=== PATIENT | female | born 1980 ===

== ENCOUNTER 2017-04-02 19:13 | Emergency (ER) | payer MEDICAID ==
[2017-04-02 19:30] VITALS: BP 135/82; PULSE 84; RESP 17; TEMP 98.7; O2SAT 99
--- NOTE | 2017-04-02 19:43 | ED PDOC ---
HPI: Headache Time Seen by Provider: 04/02/17 19:31 Chief Complaint (Nursing): Headache Chief Complaint (Provider): Headache History Per: Patient History/Exam Limitations: no limitations Onset/Duration Of Symptoms: Days (x2days) Current Symptoms Are (Timing): Still Present Pain Scale Rating Of: 8 Additional Complaint(s): Vianney garcia a 36 y/o female with a past medical history of asthma who presents to the ED with a chief complaint of a left sided headache x 2 days associated with nausea but no vomiting. Patient rates the pain an 8/10 and states she took Motrin at 19:00 yesterday which did not help the pain. Patient denies associated dizziness or vision changes, no fever or chills, no neck stiffness. Patient states this is not the worst headache of her life. PMD: Dr. Gabriella Pollack MD. Past Medical History Reviewed: Historical Data, Nursing Documentation, Vital Signs Vital Signs: Last Vital Signs Temp 98.7 F 04/02/17 19:24 Pulse 84 04/02/17 19:24 Resp 17 04/02/17 19:24 BP 135/82 04/02/17 19:24 Pulse Ox 99 04/02/17 19:24 - Medical History PMH: Asthma - Surgical History Surgical History: Cholecystectomy, Hernia Repair (Umbilical ), (2) - Family History Family History: States: No Known Family Hx - Living Arrangements Living Arrangements: With Family - Social History Current smoker - smoking cessation education provided: No Alcohol: Occasional Drugs: Denies - Home Medications Home Medications: Ambulatory Orders Medication Instructions Recorded Dicyclomine [Bentyl] 20 mg PO Q12 PRN #20 tab 09/30/15 Ondansetron ODT [Zofran ODT] 4 mg PO Q6H PRN #16 odt 09/30/15 Naproxen 500 mg PO BID #20 tab 07/01/16 Azithromycin [Zithromax] 250 mg PO DAILY #6 tab 10/26/16 Promethazine/Phenyleph/Codeine 5 ml PO Q8H PRN #100 ml 10/26/16 [Etnywsrairju-QY-Nbpnlen Syrup] Naproxen [Naprosyn] 500 mg PO BID #20 tab 04/02/17 traMADol [Ultram] 50 mg PO TID PRN #15 tab 04/02/17 - Allergies Allergies/Adverse Reactions: Allergies Allergy/AdvReac Type Severity Reaction Status Date / Time No Known Allergies Allergy Verified 09/29/15 21:04 Review of Systems ROS Statement: Except As Marked, All Systems Reviewed And Found Negative Constitutional: Negative for: Fever Eyes: Negative for: Vision Change Gastrointestinal: Positive for: Nausea. Negative for: Vomiting Neurological: Positive for: Headache (left-sided). Negative for: Weakness, Numbness, Incoordination, Change in Speech, Confusion, Seizures, Altered Mental Status, Dizziness Physical Exam - Reviewed Nursing Documentation Reviewed: Yes Vital Signs Reviewed: Yes - Physical Exam Appears: Positive for: Well, Non-toxic, No Acute Distress Head Exam: Positive for: ATRAUMATIC, NORMAL INSPECTION, NORMOCEPHALIC Skin: Positive for: Normal Color, Warm, Dry Eye Exam: Positive for: Normal appearance, EOMI, PERRL ENT: Positive for: Normal ENT Inspection Neck: Positive for: Painless ROM. Negative for: Pain On Movement Of Neck Cardiovascular/Chest: Positive for: Regular Rate, Rhythm Respiratory: Positive for: Normal Breath Sounds Extremity: Positive for: Normal ROM. Negative for: Pedal Edema Neurologic/Psych: Positive for: Alert, Oriented - Laboratory Results Urine POC: Negative - ECG O2 Sat by Pulse Oximetry: 99 (RA) Pulse Ox Interpretation: Normal - Other Rad CT head X-Ray: Read By Radiologist X-Ray Interpretation: no acute finding Medical Decision Making Medical Decision Makin: Initial Impression: 36 year old female with headache Initial Plan: * CT head * Urine test * Tylenol 975mg PO * Tramadol 50mg PO * Metoclopramide 10mg IM * Re-Eval CT head is negative. Headache pain improved after meds given. Prescriptions given for Naprosyn and Flexeril. Patient was advised to follow up with primary doctor in 1-2 days. Scribe Attestation: Documented by Wicho Kelley acting as a scribe for Aisha Benavides PA-C. Provider Scribe Attestation: All medical record entries made by the Scribe were at my direction and personally dictated by me. I have reviewed the chart and agree that the record accurately reflects my personal performance of the history, physical exam, medical decision making, and the department course for this patient. I have also personally directed, reviewed, and agree with the discharge instructions and disposition. Disposition - Clinical Impression Clinical Impression: Headache - Patient ED Disposition Is Patient to be Admitted: No Counseled Patient/Family Regarding: Studies Performed, Diagnosis, Need For Followup, Rx Given - Disposition Referrals: Gabriella Pollack MD [Family Provider] - Disposition: Routine/Home Disposition Time: 21:46 Condition: IMPROVED Additional Instructions: Take prescription meds as directed as needed for pain. Rest and drink plenty of fluids. Follow up with primary care doctor in 1-2 days. Prescriptions: Naproxen [Naprosyn] 500 mg PO BID #20 tab traMADol [Ultram] 50 mg PO TID PRN #15 tab PRN Reason: Pain, Moderate (4-7) Instructions: General Headache (ED)
--- NOTE | 2017-04-02 20:51 | CT ---
EXAM: CT Head Without Intravenous Contrast CLINICAL HISTORY: 36 years old, female; Pain; Headache; Additional info: Left sided headache for 2 days, nausea TECHNIQUE: Axial computed tomography images of the head/brain without intravenous contrast. This CT exam was performed using one or more of the following dose reduction techniques: automated exposure control, adjustment of the mA and/or kV according to patient size, and/or use of iterative reconstruction technique. COMPARISON: No relevant prior studies available. FINDINGS: Brain: No hemorrhage. No significant white matter disease. No edema. Ventricles: No hydrocephalus. Bones: Skull is intact. Sinuses: No acute sinusitis. Mastoid air cells: No mastoid effusion. IMPRESSION: No CT evidence of acute intracranial abnormality.
== END 2017-04-02 22:13 | disposition home or self-care (01) ==
LOC: H.ER 19:13
DX: R51 Headache (principal); R11.0 Nausea; J45.909 Unspecified asthma, uncomplicated

== ENCOUNTER 2017-07-17 14:25 | Emergency (ER) | payer MEDICAID ==
[2017-07-17 14:51] VITALS: BP 133/87; PULSE 86; RESP 18; TEMP 98.8; O2SAT 100
[2017-07-17] MEDS ORDERED: Naproxen 500 MG TAB PO STA (15:53)
--- NOTE | 2017-07-17 16:01 | ED PDOC ---
HPI: Headache Time Seen by Provider: 07/17/17 15:18 Chief Complaint (Nursing): Headache Chief Complaint (Provider): Headache History Per: Patient History/Exam Limitations: no limitations Onset/Duration Of Symptoms: Days (x2) Current Symptoms Are (Timing): Still Present Additional Complaint(s): Vianney is a 37 y/o female who presents to the ED complaining of a left-sided headache for 2 days. No fever, nausea, vomiting, neck stiffness, or photophobia. Took Advil with some relief of pain. Also reports feeling like her eyes are twitching. Has had similar symptoms in the past. PMD: [facility] Past Medical History Reviewed: Historical Data, Nursing Documentation, Vital Signs Vital Signs: Last Vital Signs Temp 98.8 F 07/17/17 14:48 Pulse 86 07/17/17 14:48 Resp 18 07/17/17 14:48 BP 133/87 07/17/17 14:48 Pulse Ox 100 07/17/17 14:48 - Medical History PMH: Asthma - Surgical History Surgical History: Cholecystectomy, Hernia Repair (Umbilical ), (2) - Family History Family History: States: Unknown Family Hx - Social History Alcohol: None Drugs: Denies - Home Medications Home Medications: Ambulatory Orders Medication Instructions Recorded Dicyclomine [Bentyl] 20 mg PO Q12 PRN #20 tab 09/30/15 Ondansetron ODT [Zofran ODT] 4 mg PO Q6H PRN #16 odt 09/30/15 Naproxen 500 mg PO BID #20 tab 07/01/16 Azithromycin [Zithromax] 250 mg PO DAILY #6 tab 10/26/16 Promethazine/Phenyleph/Codeine 5 ml PO Q8H PRN #100 ml 10/26/16 [Vmvnxcdpknsv-HP-Kbvuhnh Syrup] Naproxen [Naprosyn] 500 mg PO BID #20 tab 04/02/17 traMADol [Ultram] 50 mg PO TID PRN #15 tab 04/02/17 Naproxen [Naprosyn] 500 mg PO BID PRN #15 tablet 07/17/17 - Allergies Allergies/Adverse Reactions: Allergies Allergy/AdvReac Type Severity Reaction Status Date / Time No Known Allergies Allergy Verified 09/29/15 21:04 Review of Systems ROS Statement: Except As Marked, All Systems Reviewed And Found Negative Constitutional: Negative for: Fever Eyes: Positive for: Other (Eye twitching) Gastrointestinal: Negative for: Nausea, Vomiting Musculoskeletal: Negative for: Neck Pain Neurological: Positive for: Headache. Negative for: Other (Photophobia) Physical Exam - Reviewed Nursing Documentation Reviewed: Yes Vital Signs Reviewed: Yes - Physical Exam Appears: Positive for: Non-toxic, No Acute Distress Head Exam: Positive for: ATRAUMATIC, NORMAL INSPECTION, NORMOCEPHALIC Skin: Positive for: Normal Color, Warm, Dry. Negative for: Rash Eye Exam: Positive for: EOMI, Normal appearance, PERRL ENT: Positive for: Normal ENT Inspection Neck: Positive for: Normal, Painless ROM, Supple Cardiovascular/Chest: Positive for: Regular Rate, Rhythm. Negative for: Murmur Respiratory: Positive for: Normal Breath Sounds. Negative for: Accessory Muscle Use, Respiratory Distress Gastrointestinal/Abdominal: Positive for: Normal Exam, Soft. Negative for: Tenderness Back: Positive for: Normal Inspection. Negative for: L CVA Tenderness, R CVA Tenderness, Vertebral Tenderness Extremity: Positive for: Normal ROM. Negative for: Pedal Edema, Deformity Neurologic/Psych: Positive for: Alert, director visual II-XII, Oriented. Negative for: Motor/Sensory Deficits, Aphasia, Facial Droop - ECG O2 Sat by Pulse Oximetry: 100 (RA) Pulse Ox Interpretation: Normal - Progress ED Course And Treament: Pt feels better, eating in room. Re-evaluation Time: 17:30 Condition: Improved Medical Decision Making Medical Decision Making: Records reviewed, patient was seen here on 04/02/[address] Head with the following results: 04/02/17 20:51 CT Head w/o contrast: FINDINGS: Brain: No hemorrhage. No significant white matter disease. No edema. Ventricles: No hydrocephalus. Bones: Skull is intact. Sinuses: No acute sinusitis. Mastoid air cells: No mastoid effusion. IMPRESSION: No CT evidence of acute intracranial abnormality. Time: 15:53 Initial Plan: --Patient given Naproxen and Reglan PO --ED Urine test --Pending reevaluation Scribe Attestation: Documented by Laney Blue, acting as a scribe for Mellisa Feldman MD Provider Scribe Attestation: All medical record entries made by the Scribe were at my direction and personally dictated by me. I have reviewed the chart and agree that the record accurately reflects my personal performance of the history, physical exam, medical decision making, and the department course for this patient. I have also personally directed, reviewed, and agree with the discharge instructions and disposition. Disposition - Clinical Impression Clinical Impression: Acute headache - Disposition Disposition: Routine/Home Disposition Time: 17:30 Condition: STABLE Additional Instructions: FOLLOW-UP WITH YOUR PMD SCHEDULED. Prescriptions: Naproxen [Naprosyn] 500 mg PO BID PRN #15 tablet PRN Reason: Pain, Moderate (4-7) Instructions: Acute Headache (ED) Forms: [employer] (Danish)
[2017-07-17] MEDS ORDERED: Naproxen 500 MG TAB PO ONE (16:25)
== END 2017-07-17 18:03 | disposition home or self-care (01) ==
LOC: H.ER 14:25
DX: R51 Headache (principal)

== ENCOUNTER 2017-10-01 00:01 | Emergency (ER) | payer MEDICAID ==
[2017-10-01 00:54] VITALS: BP 147/89; TEMP 98; O2SAT 100
[2017-10-01] MEDS ORDERED: Albuterol-Ipratrop 3 mg / 0.5 (3 ml) UD INH STA (01:09)
[2017-10-01] MEDS ORDERED: Albuterol 0.083% Inhal Sol (2.5 mg/3 mL) UD ONE (01:18)
--- NOTE | 2017-10-01 01:33 | ED PDOC ---
HPI: SOB/CHF/COPD Time Seen by Provider: 10/01/17 00:44 Chief Complaint (Nursing): Respiratory Distress Chief Complaint (Provider): shortness of breath, cough, and chest tightness History Per: Patient History/Exam Limitations: no limitations Onset/Duration Of Symptoms: Days (x1) Current Symptoms Are (Timing): Still Present Additional Complaint(s): 37 year old female with a past medical history of asthma, presenting with chest tightness, shortness of breath, and cough for 1 day. Reports she used her home nebulizer twice with no relief. Cough is described as dry. No associated fever. She reports ill contact in a nephew and niece with URI symptoms. Patient also complains of nasal congestion. PMD: Dr. Malena Guzman Past Medical History Reviewed: Historical Data, Nursing Documentation, Vital Signs Vital Signs: Last Vital Signs Temp 98.0 F 10/01/17 00:49 Pulse 70 10/01/17 06:10 Resp 22 10/01/17 03:46 BP 147/89 10/01/17 00:49 Pulse Ox 100 10/01/17 06:10 - Medical History PMH: Asthma - Surgical History Surgical History: Cholecystectomy, Hernia Repair (Umbilical ), (2) - Family History Family History: States: Unknown Family Hx - Social History Current smoker - smoking cessation education provided: No Alcohol: None Drugs: Denies - Home Medications Home Medications: Ambulatory Orders Medication Instructions Recorded Dicyclomine [Bentyl] 20 mg PO Q12 PRN #20 tab 09/30/15 Ondansetron ODT [Zofran ODT] 4 mg PO Q6H PRN #16 odt 09/30/15 Naproxen 500 mg PO BID #20 tab 07/01/16 Azithromycin [Zithromax] 250 mg PO DAILY #6 tab 10/26/16 Promethazine/Phenyleph/Codeine 5 ml PO Q8H PRN #100 ml 10/26/16 [Mssogcyofwak-TR-Jvbedfv Syrup] Naproxen [Naprosyn] 500 mg PO BID #20 tab 04/02/17 traMADol [Ultram] 50 mg PO TID PRN #15 tab 04/02/17 Naproxen [Naprosyn] 500 mg PO BID PRN #15 tablet 07/17/17 Benzonatate [Tessalon Perle] 100 mg PO TID PRN #15 capsule 10/01/17 Methylprednisolone [Medrol Dosepak] 4 mg PO ASDIR #1 pkg 10/01/17 - Allergies Allergies/Adverse Reactions: Allergies Allergy/AdvReac Type Severity Reaction Status Date / Time No Known Allergies Allergy Verified 10/01/17 00:43 Review of Systems ROS Statement: Except As Marked, All Systems Reviewed And Found Negative Constitutional: Negative for: Fever ENT: Positive for: Nose Congestion Cardiovascular: Positive for: Other (Chest tightness) Respiratory: Positive for: Cough, Shortness of Breath Physical Exam - Reviewed Nursing Documentation Reviewed: Yes Vital Signs Reviewed: Yes - Physical Exam Appears: Positive for: Non-toxic, No Acute Distress Head Exam: Positive for: ATRAUMATIC, NORMOCEPHALIC Skin: Positive for: Normal Color, Warm, Dry Eye Exam: Positive for: EOMI, Normal appearance, PERRL Neck: Positive for: Normal, Painless ROM, Supple Cardiovascular/Chest: Positive for: Regular Rate, Rhythm. Negative for: Murmur Respiratory: Positive for: Wheezing (bilaterally), Other (Decreased air entry) Gastrointestinal/Abdominal: Positive for: Normal Exam, Soft. Negative for: Tenderness Back: Positive for: Normal Inspection. Negative for: L CVA Tenderness, R CVA Tenderness, Vertebral Tenderness Extremity: Positive for: Normal ROM. Negative for: Pedal Edema, Deformity Neurologic/Psych: Positive for: Alert, Oriented. Negative for: Motor/Sensory Deficits - Laboratory Results Result Diagrams: 10/01/17 01:44 10/01/17 01:44 - ECG ECG: Positive for: Interpreted By Me, Viewed By Me ECG Rhythm: Positive for: Sinus Rhythm. Negative for: ST/T Changes Rate: 70 O2 Sat by Pulse Oximetry: 100 (RA) Pulse Ox Interpretation: Normal - Other Rad chest x-ray X-Ray: Interpreted by Me, Viewed By Me X-Ray Interpretation: No acute disease Medical Decision Making Medical Decision Making: Time: 1:06 Initial Impression: 37 y/o female with cough and wheezing in setting of known asthma Initial Plan: --EKG --BMP --Urine --CBC w/ differential --Chest x-ray --Influenza A B --Duoneb 3 ml INH x3 --Solu-medrol 125 mg IV --Peak Flow pre/post treatment Time: 2:55 Labs reviewed and revealed no clinically significant abnormalities. Time: 3:48 Patient complains of persistent shortness of breath. Will order CT for further evaluation Time: 5:01 CT Angio Chest: FINDINGS: Pulmonary arteries: No central pulmonary embolism. Aorta: No thoracic aortic aneurysm. Lungs: No mass. No consolidation. Pleural spaces: No significant effusion. No pneumothorax. Heart: No cardiomegaly. No significant pericardial effusion. No evidence of right heart dysfunction. Bones: No acute fracture. Lymph nodes: No pathologically enlarged lymph nodes. IMPRESSION: No central pulmonary embolism. The lungs are clear. Clinical Impression: Bronchitis Patient is medically stable for discharge home. Provided with prescriptions for Tessalon Perles and Methylprednisolone. Counseling was provided and all questions were answered regarding diagnosis and need for follow up with PMD. There is agreement to discharge plan. Return if symptoms persist or worsen. Scribe Attestation: Documented by Laney Blue, acting as a scribe for Amador Varela MD Provider Scribe Attestation: All medical record entries made by the Scribe were at my direction and personally dictated by me. I have reviewed the chart and agree that the record accurately reflects my personal performance of the history, physical exam, medical decision making, and the department course for this patient. I have also personally directed, reviewed, and agree with the discharge instructions and disposition. Disposition - Clinical Impression Clinical Impression: Bronchitis - Patient ED Disposition Is Patient to be Admitted: No Counseled Patient/Family Regarding: Studies Performed, Diagnosis, Need For Followup - Disposition Referrals: Gabriella Pollack MD [Primary Care Provider] - Disposition: Routine/Home Disposition Time: 05:15 Condition: STABLE Prescriptions: Benzonatate [Tessalon Perle] 100 mg PO TID PRN #15 capsule PRN Reason: Cough Methylprednisolone [Medrol Dosepak] 4 mg PO ASDIR #1 pkg Forms: [employer] (Italian)
[2017-10-01 01:48] LABS: BASO # 0.1 K/uL (0.0-0.2); BASO % 0.7 % (0.0-2.0); EOS # 0.2 K/uL (0.0-0.7); EOS % 1.7 % (0.0-4.0); HEMATOCRIT 44.1 % (34.0-47.0); LYMPH # 3.1 K/uL (1.0-4.3); LYMPH % 28.9 % (20.0-40.0); MEAN CELL VOLUME 95.4 fl (81.0-99.0); MEAN CORPUSCULAR HEMOGLOBIN 31.3 pg (27.0-31.0); MEAN CORPUSCULAR HGB CONC 32.8 g/dL (33.0-37.0); MEAN PLATELET VOLUME 8.8 fl (7.2-11.7); NEUT # 6.5 K/uL (1.8-7.0); NEUT % 59.7 % (50.0-75.0); NRBC % 0.1 % (0.0-0.0); RED CELL DISTRIBUTION WIDTH 12.7 % (11.5-14.5); WHITE BLOOD COUNT 10.8 K/uL (4.8-10.8)
[2017-10-01 01:58] LABS: CALCIUM 9.1 mg/dL (8.4-10.2); CARBON DIOXIDE 24 mmol/L (22-30); CHLORIDE 107 mmol/L (98-107); GFR AFRICAN-AMERICAN > 60; GLUCOSE,RANDOM 111 mg/dL (65-105); SODIUM 142 mmol/l (132-148)
[2017-10-01 02:16] LABS: BLOOD UREA NITROGEN 10 mg/dl (7-17); POTASSIUM 3.7 MMOL/L (3.6-5.0)
[2017-10-01 02:21] VITALS: PULSE 70
[2017-10-01] MEDS ORDERED: Albuterol-Ipratrop 3 mg / 0.5 (3 ml) UD ONE (02:40)
[2017-10-01] MEDS ORDERED: Magnesium Sulfate 2 GM in Sodium Chloride 0.9% 100 ML IV STA (02:41)
[2017-10-01 03:47] VITALS: RESP 22
[2017-10-01] MEDS ORDERED: Sodium Chloride 0.9% 50 ML IV ONE (04:32)
[2017-10-01] MEDS ORDERED: Iodixanol 320 MG/ML 100 ML BOTTLE IV ONE (04:32)
--- NOTE | 2017-10-01 05:02 | CT ---
EXAM: CT Angiography Chest With Intravenous Contrast CLINICAL HISTORY: 37 years old, female; Pain; Chest pain; Prior surgery; Surgery date: 6+ months; Surgery type: Gall bladder removed; Additional info: Chest pain R/O pe TECHNIQUE: Axial computed tomographic angiography images of the chest with intravenous contrast using pulmonary embolism protocol. All CT scans at this facility use one or more dose reduction techniques, viz.: automated exposure control; ma/kV adjustment per patient size (including targeted exams where dose is matched to indication; i.e. head); or iterative reconstruction technique. MIP reconstructed images were created and reviewed. Coronal and sagittal reformatted images were created and reviewed. CONTRAST: 95 mL of [id number] administered intravenously. COMPARISON: No relevant prior studies available. Examination is limited by poor bolus timing. FINDINGS: Pulmonary arteries: No central pulmonary embolism. Aorta: No thoracic aortic aneurysm. Lungs: No mass. No consolidation. Pleural spaces: No significant effusion. No pneumothorax. Heart: No cardiomegaly. No significant pericardial effusion. No evidence of right heart dysfunction. Bones: No acute fracture. Lymph nodes: No pathologically enlarged lymph nodes. IMPRESSION: No central pulmonary embolism. The lungs are clear.
--- NOTE | 2017-10-01 09:52 | RAD ---
HISTORY: SOB COMPARISON: No prior. TECHNIQUE: Chest PA and lateral FINDINGS: LUNGS: No active pulmonary disease. PLEURA: No significant pleural effusion identified. No pneumothorax apparent. CARDIOVASCULAR: Normal. OSSEOUS STRUCTURES: No significant abnormalities. VISUALIZED UPPER ABDOMEN: Normal. OTHER FINDINGS: None. IMPRESSION: No active disease.
--- NOTE | 2017-10-01 12:14 | CARD ---
APPROVED REPORT EKG Measurement Heart [id number] <Conclusion> Normal sinus rhythm Normal ECG
== END 2017-10-01 05:45 | disposition home or self-care (01) ==
LOC: H.ER 00:01
DX: J40 Bronchitis, not specified as acute or chronic (principal)
CPT/HCPCS: 71020; 71275; 80048; 81025; 85025; 87804; 93005; 94640; 96374; 99283; J2930; J3475; Q9967

== ENCOUNTER 2017-10-01 18:53 | Emergency (ER) | payer MEDICAID ==
[2017-10-01 19:10] VITALS: BP 147/98; RESP 20; TEMP 98
--- NOTE | 2017-10-01 19:24 | ED PDOC ---
HPI: SOB/CHF/COPD Time Seen by Provider: 10/01/17 18:58 Chief Complaint (Nursing): Shortness Of Breath Chief Complaint (Provider): SOB History Per: Patient Additional Complaint(s): 37 year old female with a past medical history of asthma, presenting with chest tightness, shortness of breath, and cough for 2 days now. Pt tearful and anxious appearing during interview. Reports she used her home nebulizer twice with no relief. Cough is described as dry. No associated fever. She reports ill contact in a nephew and niece with URI symptoms. Patient also complains of nasal congestion. Pt seen and evaluated here in the ED yesterday for the same complaints. Pt afebrile yesterday WBC WNL CXR:IMPRESSION: No active disease. CT: IMPRESSION: No central pulmonary embolism. The lungs are clear. PMD: Dr. Malena Guzman Past Medical History Reviewed: Nursing Documentation, Vital Signs Vital Signs: Last Vital Signs Temp 98.0 F 10/01/17 19:07 Pulse 113 H 10/01/17 19:07 Resp 20 10/01/17 19:07 BP 147/98 H 10/01/17 19:07 Pulse Ox 99 10/01/17 19:28 - Medical History PMH: Asthma Denies: Chronic Kidney Disease - Surgical History Surgical History: Cholecystectomy, Hernia Repair (Umbilical ), (2) - Family History Family History: States: Unknown Family Hx - Living Arrangements Living Arrangements: With Family - Social History Current smoker - smoking cessation education provided: No Alcohol: None Drugs: Denies - Home Medications Home Medications: Ambulatory Orders Medication Instructions Recorded Dicyclomine [Bentyl] 20 mg PO Q12 PRN #20 tab 09/30/15 Ondansetron ODT [Zofran ODT] 4 mg PO Q6H PRN #16 odt 09/30/15 Naproxen 500 mg PO BID #20 tab 07/01/16 Azithromycin [Zithromax] 250 mg PO DAILY #6 tab 10/26/16 Promethazine/Phenyleph/Codeine 5 ml PO Q8H PRN #100 ml 10/26/16 [Qgebwapivoeg-CO-Zkiofat Syrup] Naproxen [Naprosyn] 500 mg PO BID #20 tab 04/02/17 traMADol [Ultram] 50 mg PO TID PRN #15 tab 04/02/17 Naproxen [Naprosyn] 500 mg PO BID PRN #15 tablet 07/17/17 Benzonatate [Tessalon Perle] 100 mg PO TID PRN #15 capsule 10/01/17 Methylprednisolone [Medrol Dosepak] 4 mg PO ASDIR #1 pkg 10/01/17 - Allergies Allergies/Adverse Reactions: Allergies Allergy/AdvReac Type Severity Reaction Status Date / Time No Known Allergies Allergy Verified 10/01/17 00:43 Curb-65 Severity Score - CURB-65 Severity Score Confusion: No Bun >19mg/dl (>7mmol/L): No Respiratory Rate greater than/equal to 30: No Systolic BP <90 or Diastolic BP less than/equal 60mmHg: No Age >64: No Curb-65 Score: 0 Percentage 30-day mortality: 0.6% Wells Criteria for PE - Wells Criteria for Pulmonary Embolism Clinical Signs and Symptoms of DVT: No P.E is #1 Diagnosis, or Equally Likely: No Heart Rate >100: No Immobilization at least 3 days;Surgery previous 4 weeks: No Previous, objectively diagnosed PE or DVT: No Hemoptysis: No Malignancy w/treatment within 6 months, or palliative: No Total Score: 0 Review of Systems ROS Statement: Except As Marked, All Systems Reviewed And Found Negative Respiratory: Positive for: Cough, SOB with Exertion Physical Exam - Reviewed Nursing Documentation Reviewed: Yes Vital Signs Reviewed: Yes - Physical Exam Appears: Positive for: Well, Non-toxic, No Acute Distress Head Exam: Positive for: ATRAUMATIC, NORMAL INSPECTION, NORMOCEPHALIC Skin: Positive for: Normal Color, Warm, DRY Eye Exam: Positive for: EOMI, Normal appearance, PERRL ENT: Positive for: Normal ENT Inspection Neck: Positive for: Normal, Painless ROM Cardiovascular/Chest: Positive for: Regular Rate, Rhythm Respiratory: Positive for: CNT, Normal Breath Sounds Gastrointestinal/Abdominal: Positive for: Normal Exam, Bowel Sounds, Soft Back: Positive for: Normal Inspection Extremity: Positive for: Normal ROM Neurologic/Psych: Positive for: Alert, Oriented - ECG O2 Sat by Pulse Oximetry: 99 Medical Decision Making Medical Decision Making: Pt afebrile yesterday WBC WNL CXR:IMPRESSION: No active disease. CT: IMPRESSION: No central pulmonary embolism. The lungs are clear. IV access established and diagnostics ordered. Treatment initiated with Duo neb , Solumedrol and Xanax Case endorsed to YVONNE Cevallos at 1999 pending diagnostic review and re-eval Disposition - Clinical Impression Clinical Impression: Anxiety, Bronchitis - Patient ED Disposition Is Patient to be Admitted: Transfer of Care - Disposition Disposition: Transfer of Care Disposition Time: 19:44 Condition: STABLE Forms: [employer] (Bahraini)
[2017-10-01] MEDS ORDERED: Albuterol-Ipratrop 3 mg / 0.5 (3 ml) UD INH STA (19:26)
[2017-10-01] MEDS ORDERED: Albuterol-Ipratrop 3 mg / 0.5 (3 ml) UD ONE (19:42)
[2017-10-01 20:13] LABS: BASO % 0.2 % (0.0-2.0); HEMATOCRIT 45.2 % (34.0-47.0); LYMPH # 1.7 K/uL (1.0-4.3); LYMPH % 11.2 % (20.0-40.0); MEAN CELL VOLUME 94.5 fl (81.0-99.0); MEAN CORPUSCULAR HEMOGLOBIN 31.7 pg (27.0-31.0); MEAN CORPUSCULAR HGB CONC 33.6 g/dL (33.0-37.0); MEAN PLATELET VOLUME 9.1 fl (7.2-11.7); MONO # 1.3 K/uL (0.0-0.8); MONO % 8.1 % (0.0-10.0); NEUT # 12.6 K/uL (1.8-7.0); NEUT % 80.5 % (50.0-75.0); RED CELL DISTRIBUTION WIDTH 12.8 % (11.5-14.5); WHITE BLOOD COUNT 15.6 K/uL (4.8-10.8)
[2017-10-01 20:36] LABS: ALB/GLOB RATIO 1.2 (1.0-2.1); ALKALINE PHOSPHATASE 84 U/L (38-126); ALT/SGPT 39 U/L (9-52); AST/SGOT 22 U/L (14-36); BILIRUBIN,TOTAL 0.9 mg/dl (0.2-1.3); BLOOD UREA NITROGEN 9 mg/dl (7-17); CALCIUM 9.5 mg/dL (8.4-10.2); CARBON DIOXIDE 19 mmol/L (22-30); CHLORIDE 112 mmol/L (98-107); GFR AFRICAN-AMERICAN > 60; GLUCOSE,RANDOM 123 mg/dL (65-105); POTASSIUM 3.5 MMOL/L (3.6-5.0); SODIUM 144 mmol/l (132-148); TOTAL PROTEIN 8.3 G/DL (6.3-8.2)
[2017-10-01 20:51] LABS: THYROID STIMULATING HORMONE 0.64 mIU/ML (0.46-4.68)
[2017-10-01] MEDS ORDERED: Potassium Chloride 20 mEq ER Tab PO STA (21:40)
--- NOTE | 2017-10-01 22:24 | ED PDOC ---
- Laboratory Results Result Diagrams: 10/01/17 20:00 10/01/17 20:00 - ECG O2 Sat by Pulse Oximetry: 99 - Progress ED Course And Treament: Patient appears improved. Ambulates on 99% at RA. Advised f/u with pmd in 2 days. Disposition - Clinical Impression Clinical Impression: Anxiety, Bronchitis - POA Present On Arrival: None - Disposition Referrals: [facility] [place] [Outside] Disposition: Routine/Home Disposition Time: 22:23 Condition: STABLE Additional Instructions: PLEASE CONTINUE WITH YOUR MEDROL DOSE PACK Instructions: Acute Bronchitis (ED), Anxiety (ED) Forms: [facility] [employer] (Swedish), [facility] ED School/Work Excuse
[2017-10-01 22:51] VITALS: PULSE 100; O2SAT 100
--- NOTE | 2017-10-02 10:20 | CARD ---
APPROVED REPORT EKG Measurement Heart [id number] <Conclusion> Sinus tachycardia Otherwise normal ECG
== END 2017-10-01 22:51 | disposition home or self-care (01) ==
LOC: H.ER 18:53
DX: J40 Bronchitis, not specified as acute or chronic (principal); F41.9 Anxiety disorder, unspecified
CPT/HCPCS: 80053; 84443; 84484; 85025; 93005; 94640; 96374; 99283; J2930

== ENCOUNTER 2018-01-12 03:48 | Emergency (ER) | payer MEDICAID ==
[2018-01-12 04:09] VITALS: O2SAT 96
--- NOTE | 2018-01-12 04:30 | ED PDOC ---
HPI: Chest Pain Time Seen by Provider: 01/12/18 04:00 Chief Complaint (Nursing): Chest Pain Chief Complaint (Provider): chest pain History Per: Patient History/Exam Limitations: no limitations Onset/Duration Of Symptoms: Hrs (1) Current Symptoms Are (Timing): Still Present Quality: "Pain" Exacerbating Factors: Turning, Movement, Deep Breathing Additional History Per: Patient Additional Complaint(s): 37 y/o female presents for evaluation of mid sternal chest pain x 1 hour. Patient states she was sleeping on her right side, and when she went to turn to her left side she felt the pain. Pain worsened by movement, deep breaths. Denies fever, shortness of breath, nausea/vomiting, abdominal pain, leg pain/ swelling, recent travel. Past Medical History Reviewed: Historical Data, Nursing Documentation, Vital Signs Vital Signs: Last Vital Signs Temp 98.5 F 01/12/18 04:07 Pulse 94 H 01/12/18 04:07 Resp 17 01/12/18 04:07 BP 119/84 01/12/18 04:07 Pulse Ox 96 01/12/18 04:46 - Medical History PMH: Asthma Denies: Chronic Kidney Disease - Surgical History Surgical History: Cholecystectomy, Hernia Repair (Umbilical ), (2) - Family History Family History: States: Unknown Family Hx - Social History Current smoker - smoking cessation education provided: No - Home Medications Home Medications: Ambulatory Orders Medication Instructions Recorded Dicyclomine [Bentyl] 20 mg PO Q12 PRN #20 tab 09/30/15 Ondansetron ODT [Zofran ODT] 4 mg PO Q6H PRN #16 odt 09/30/15 Naproxen 500 mg PO BID #20 tab 07/01/16 Azithromycin [Zithromax] 250 mg PO DAILY #6 tab 10/26/16 Promethazine/Phenyleph/Codeine 5 ml PO Q8H PRN #100 ml 10/26/16 [Pcjzvklibieb-BP-Bkurqic Syrup] Naproxen [Naprosyn] 500 mg PO BID #20 tab 04/02/17 traMADol [Ultram] 50 mg PO TID PRN #15 tab 04/02/17 Naproxen [Naprosyn] 500 mg PO BID PRN #15 tablet 07/17/17 Benzonatate [Tessalon Perle] 100 mg PO TID PRN #15 capsule 10/01/17 Methylprednisolone [Medrol Dosepak] 4 mg PO ASDIR #1 pkg 10/01/17 - Allergies Allergies/Adverse Reactions: Allergies Allergy/AdvReac Type Severity Reaction Status Date / Time No Known Allergies Allergy Verified 10/01/17 00:43 Review of Systems ROS Statement: Except As Marked, All Systems Reviewed And Found Negative Cardiovascular: Positive for: Chest Pain Physical Exam - Reviewed Nursing Documentation Reviewed: Yes Vital Signs Reviewed: Yes - Physical Exam Appears: Positive for: Well, Non-toxic, No Acute Distress Head Exam: Positive for: ATRAUMATIC, NORMAL INSPECTION, NORMOCEPHALIC Skin: Positive for: Normal Color Eye Exam: Positive for: Normal appearance ENT: Positive for: Normal ENT Inspection Cardiovascular/Chest: Positive for: Regular Rate, Rhythm. Negative for: Chest Non Tender (tender to palpate left of upper sternum; no erythema, ecchymosis, edema noted) Respiratory: Positive for: Normal Breath Sounds Gastrointestinal/Abdominal: Positive for: Normal Exam Back: Positive for: Normal Inspection Extremity: Positive for: Normal ROM Neurologic/Psych: Positive for: Alert, Oriented - Laboratory Results Result Diagrams: 01/12/18 04:31 01/12/18 04:31 - ECG ECG: Positive for: Viewed By Me (reviewed by ED attending) ECG Rhythm: Positive for: Sinus Rhythm O2 Sat by Pulse Oximetry: 96 Pulse Ox Interpretation: Normal - Radiology X-Ray: Viewed By Me X-Ray Interpretation: No Acute Disease - Progress ED Course And Treament: labs, ekg, chest xray, IV toradol On re-eval, patient notes improvement of pain. Patient educated on findings, discharged with instructions to follow up PMD 2-3 days. Advised NSAIDs. Return precautions given. Disposition - Clinical Impression Clinical Impression: Atypical chest pain - Patient ED Disposition Is Patient to be Admitted: No Counseled Patient/Family Regarding: Studies Performed, Diagnosis, Need For Followup - Disposition Referrals: Gabriella Pollack MD [Primary Care Provider] - Disposition: Routine/Home Disposition Time: 05:43 Condition: IMPROVED Instructions: Chest Pain (DC) Forms: [employer] (Arabic) Print Language: PRYDEINIG
[2018-01-12 04:39] LABS: BASO % 0.5 % (0.0-2.0); EOS # 0.2 K/uL (0.0-0.7); HEMOGLOBIN 14.8 g/dL (12.0-16.0); LYMPH # 2.5 K/uL (1.0-4.3); LYMPH % 33.8 % (20.0-40.0); MEAN CELL VOLUME 93.9 fl (81.0-99.0); MEAN CORPUSCULAR HEMOGLOBIN 32.4 pg (27.0-31.0); MEAN CORPUSCULAR HGB CONC 34.5 g/dL (33.0-37.0); MEAN PLATELET VOLUME 8.8 fl (7.2-11.7); MONO # 0.7 K/uL (0.0-0.8); MONO % 9.7 % (0.0-10.0); NRBC % 0.2 % (0.0-0.0); RBC 4.57 Mil/uL (3.80-5.20); RED CELL DISTRIBUTION WIDTH 12.5 % (11.5-14.5); WHITE BLOOD COUNT 7.5 K/uL (4.8-10.8)
[2018-01-12 05:07] LABS: ALB/GLOB RATIO 1.1 (1.0-2.1); ALBUMIN 3.9 g/dL (3.5-5.0); AST/SGOT 31 U/L (14-36); BLOOD UREA NITROGEN 11 mg/dl (7-17); CALCIUM 9.1 mg/dL (8.4-10.2); GFR AFRICAN-AMERICAN > 60; GFR NON-AFRICAN AMERICAN > 60
[2018-01-12 05:08] LABS: ALT/SGPT 36 U/L (9-52)
[2018-01-12 05:51] VITALS: BP 117/85; PULSE 80; RESP 18; TEMP 97.8
--- NOTE | 2018-01-12 09:43 | RAD ---
HISTORY: chest pain COMPARISON: 10/01/2017 TECHNIQUE: Chest PA and lateral FINDINGS: LUNGS: No active pulmonary disease. PLEURA: No significant pleural effusion identified. No pneumothorax apparent. CARDIOVASCULAR: Probable top-normal heart size -yet stable OSSEOUS STRUCTURES: Thoracic spondylosis VISUALIZED UPPER ABDOMEN: Normal. OTHER FINDINGS: None. IMPRESSION: No interval pathology noted
--- NOTE | 2018-01-12 11:03 | CARD ---
APPROVED REPORT EKG Measurement Heart [id number] <Conclusion> Normal sinus rhythm Normal ECG
== END 2018-01-12 06:21 | disposition home or self-care (01) ==
LOC: H.ER 03:48
DX: R07.89 Other chest pain (principal); J45.909 Unspecified asthma, uncomplicated
CPT/HCPCS: 71046; 80053; 81025; 84484; 85025; 93005; 99283; J1885